=== PATIENT | male | born 1965 | race Caucasian/White ===

== ENCOUNTER 2025-06-18 22:05 | Observation (INO) | payer OTHER, SELFPAY ==
[2025-06-18 18:47] VITALS: BP 139/97
[2025-06-18 18:49] VITALS: BMI 27.3
--- NOTE | 2025-06-18 18:58 | ED.GENMED ---
History of Present Illness
General
Chief Complaint: Dizziness
Source: patient
Exam Limitations: none
Time Seen by Provider: 06/18/25 18:45
Nursing documentation reviewed up to this point in time: agreed with
History of Present Illness
History of Present Illness:
59-year-old male with history as noted presents to the ER for evaluation of dizziness and vomiting. Patient reports rather abrupt onset of his symptoms around 5 PM and have been constant since that time. He reports an intense room spinning
sensation associated with severe nausea and vomiting. Symptoms are much worse with movement, somewhat better when sitting still. He denies any abdominal pain. Denies any chest pain or palpitations. He denies headache or neck pain. He denies any
change in his vision or speech, focal weakness or numbness in his extremities. He has never had similar symptoms in the past. He does note that he has had a mild cold with some congestion and cough over the past few days.
Past History
Past History
ED Past Medical History: Other (Diverticulitis)
ED Past Surgical History: None
Social History
Tobacco: Non-smoker
Alcohol: None
Review of Systems
Review of Systems
All Other Systems: ROS reviewed and negative except as documented in HPI and ROS
Constitutional: Denies fever or chills
EENT: Reports other (Congestion); Denies sore throat
Respiratory: Reports cough; Denies trouble breathing
Cardiac: Denies chest pain or palpitations
ABD/GI: Reports nausea and vomiting; Denies abdominal pain
: Denies flank pain
Musculoskeletal: Denies neck pain or back pain
Neurological: Reports dizzy; Denies headache, weakness or numbness
Phy Exam
Physical Exam
Physical Exam:
General: Awake, alert, oriented x3; appears uncomfortable holding emesis bag and occasionally vomiting
Head: Normocephalic, atraumatic
Eyes: Conjunctiva normal, pupils equal round and reactive to light bilaterally, EOMI, fatigable but reproducible leftward nystagmus noted but no rightward nystagmus or vertical/rotary nystagmus
Throat: Airway intact, handling secretions
Neck: Trachea midline, supple without meningismus
Lungs: Clear to auscultation bilaterally, no wheezing, rales, rhonchi
Heart: Regular rate and rhythm, no murmurs, gallops, or rubs
Abd: Soft, non distended, nontender
Neuro: Cranial nerves intact, speech fluid, no limb ataxia, motor and sensory intact in all extremities
Skin: Warm and dry
Extremities: No edema in extremities, warm and well-perfused
Scores
Heart Failure Risk
Heart Failure Risk Score: Not Applicable
Heart Score for Chest Pain Patients
STEMI patient?: Not applicable
Withdrawal Assessment of Alcohol
Withdrawal Assessment Completed?: Not applicable
Course
Orders/Labs/Results
Orders:
Orders
06/18/25 18:47
Electrocardiogram (*1) Urgent
Reason for Study: Vertigo / Dizzy
EKG- Treatment ONCE
06/18/25 18:56
CMP [Comprehensive Metabolic Panel] Urgent
Complete Blood Count/With Diff Urgent
06/18/25 18:57
CT Head W/o Iv Contrast Urgent
Comment:
Reason For Exam: acute onset dizziness
diazePAM [Valium Injection] 2 mg IV NOW STA
06/18/25 18:58
0.9% Sodium Chloride 1000 ml [Nss] 1,000 ml IV BOLUS
06/18/25 19:50
Meclizine [Antivert] 25 mg PO NOW STA
06/18/25 19:57
COVID-19 Antigen Urgent
Source: Nasal Swab
Troponin I Urgent
Influenza A+B Rapid Molecular Urgent
LEE ANN Source: Nasal Swab
Specimen Description:
06/18/25 20:05
Potassium Chloride [KCl] 40 meq 0.9% Sodium Chloride 250 ml [Nss] 250 ml IV NOW
Abnormal Lab Results
06/18/25
18:56
RBC 4.65 L 10^6/uL
(4.70-6.10)
Absolute Neuts (auto) 7.5 H 10^3/uL
(1.4-6.5)
Lymphocytes % 19.1 L %
(20.5-51.1)
Potassium 3.0 L mmol/L
(3.5-5.1)
Glucose 122 H mg/dl
(70-99)
06/18/25 18:56
06/18/25 18:56
Vital Signs
Initial and Last Documented VS:
Initial Vital Signs
Pulse Resp BP Pulse Ox
74 26 139/97 98
06/18/25 18:47 06/18/25 18:47 06/18/25 18:47 06/18/25 18:47
Last Documented Vital Signs
Temp Pulse Resp BP Pulse Ox
36.6 C 71 25 139/97 98
06/18/25 18:49 06/18/25 18:49 06/18/25 18:49 06/18/25 18:47 06/18/25 19:05
MDM/Problems Addressed
Differential Diagnosis Includes:
Vertigo: Differential diagnosis includes peripheral vertigo (BPPV, labyrinthitis, eustachian tube dysfunction, etc) versus central (brain mass, brain bleed, CVA, etc)
MDM/Problems Addressed:
59-year-old male presents to the ER for evaluation of dizziness with profuse vomiting consistent with vertigo. Has had mild cold the past few days progressed to severe vertigo this evening. Overall his clinical picture is most consistent with
peripheral vertigo with nothing to suggest central cause for his vertigo. Plan to check basic labs, EKG. Check CT head in an abundance of caution. Treat symptomatically provide some IV fluids. Reassess at the above.
Patient felt a bit woozy after IV Valium, mildly short of breath but no tachypnea or hypoxia. Suspect medication reaction continue to monitor.
Patient feeling a bit better now he says dizziness has improved slightly still quite nauseated and symptoms very pronounced with movement of the head still. They have improved however with rest/sitting still. His initial labs are unremarkable. CT
head no acute abnormalities on my review although final report pending. Will try to treat with meclizine and see if we can get his symptoms under better control but he may need admission for supportive care if symptoms remain to this degree.
Patient still symptomatic difficulty moving around too to severe symptoms. Will admit for continued treatment. Discussed with hospitalist.
*Radiology
Radiology exam reviewed: radiology read reviewed
*Pulse Oximetry
SaO2: 98
Oxygen Mode of Delivery: Room air
Patient hypoxic: no (98%)
*EKG
Interpreted by ED Provider?: Yes
Heart Rate: 75
Rate: normal
Rhythm: sinus
[place]: normal axis
Interval: normal interval and normal QT interval (Borderline QT prolongation)
QRS Pattern: normal QRS
Ischemia: no ischemia
*Critical Care Note
Total Time (30-74mins, 75-104mins- exclusive of procedures): Not Applicable
Data Reviewed
Source: patient and ambulance crew
Patient Management
Discussion with other providers: Hospitalist (Discussed with hospitalist)
Escalation/DeEscalation of care consider admission/obs:
Admission indicated
ED Attending Note
-
Portions of this chart may have been created with voice recognition software.� Occasional wrong word or��sound alike� substitutions may have occurred due to the inherent limitations of voice recognition software.
Discharge Plan
Departure
Patient Disposition: Admit
Date of Disposition: 06/18/25
Time of Disposition: 20:27
Admit to doctor: Felisha
Presentation/result/management discussed w/ accepting MD/DO: Hospitalist
Discharge Problem:
Vertigo
Prescriptions:
No Action
lisinopril 10 mg Tablet
10 mg PO DAILY Qty: 30 0RF
hydrochlorothiazide 25 mg Tablet
25 mg PO DAILY Qty: 30 0RF
Interventions
Interventions:
*Risk Screen - Suicide Last Done: 06/18/25 18:45
*General Assessment Last Done: 06/18/25 18:45
*Neglect/Abuse Screening Last Done: 06/18/25 18:45
*ED- Fall Risk Assessment Last Done: 06/18/25 18:45
*ED COVID-19 Vaccine History Last Done: 06/18/25 18:45
*ED Influenza Vaccine History Last Done: 06/18/25 18:45
ED- Neurological Assessment Last Done: 06/18/25 18:50
ED- Cardiac Assessment Last Done: 06/18/25 18:50
Discharge Date and Time
Print Language: WELSH
[2025-06-18 19:00] VITALS: BP 140/99
[2025-06-18] MEDS: NSS 1000 IV (19:01)
[2025-06-18] MEDS: VALIUM INJECTION 2 MG IV (19:01)
[2025-06-18 19:04] LABS: Hematocrit 40.4 % (39.0-52.0); Hemoglobin 14.2 g/dL (13.0-18.0); Mean Corp Hgb Conc. 35.1 g/dL (33.0-37.0); Mean Corpuscular Volume 86.9 fL (80.0-94.0); Nucleated Red Blood Cells % 0 % (-); Platelet Count 244 10^3/uL (130-400); Red Cell Dist. Width 11.6 % (11.5-14.5)
[2025-06-18 19:18] LABS: ALT (SGPT) 41 U/L (0-50); AST (SGOT) 34 U/L (17-59); Albumin 4.5 g/dl (3.5-5.0); Alkaline Phosphatase 82 U/L (38-126); Blood Urea Nitrogen 19 mg/dl (9-20); Calcium 9.8 mg/dl (8.4-10.2); Carbon Dioxide 25 mmol/L (22-30); Chloride 101 mmol/L (98-107); Estimated Creatinine Clearance 83 ml/min; Glucose 122 mg/dl (70-99); Potassium 3.0 mmol/L (3.5-5.1); Sodium 136 mmol/L (135-145); Total Protein 7.3 g/dl (6.3-8.2); eGFR > 60.00
[2025-06-18 20:22] LABS: COVID-19 Antigen Negative (Negative)
[2025-06-18 20:30] LABS: Troponin I < 0.012 ng/ml
[2025-06-18 20:34] VITALS: BP 167/106
[2025-06-18] MEDS: KCL 270 MEQ IV (20:39)
--- NOTE | 2025-06-18 20:45 | W.PN.UPDATE ---
Addendum entered and electronically signed by Dina Jha MD 06/18/25 23:11:
patient with persistent nausea post Zofran, will change antiemetic to IV Compazine PRN
patient willing to try Antivert now as well.
Original Note:
Update Note
Progress Note Update
This is an update to H&P written by BUTTON INSPECTOR Narda Wheat
I saw and examined the patient.
The BUTTON INSPECTOR's note was reviewed and I agree with the note.
Comment:
Mr. Aki Agustin is a 59 yo man with hx diverticulitis presents to the ER with sudden onset of dizziness and vomiting.
Triage VS: T 36.6 C, P 74, RR 26, BP 139/97, SpO2 98%
On exam patient appears nauseated, no nystagmus, no focal deficits.
LABS: WBC 10.3, Hg 14.2, Na 136, K+ 3.0, CO2 25, Cr 1.0, Glucose [address]
IMPRESSION:
No acute intracranial abnormality noted.
Moderate nonacute sinusitis. Stable
Mild acute left maxillary sinusitis.
Vertigo
-s/p Valium in ER, patient nervous to take Meclizine with water 2/2 nausea
-IV Zofran x 1 now
-Meclizine PRN, hopefully can take once nausea treated
-IVF
-PT Vestibular therapy
-team to consider MRI in AM if symptoms are persistent
Hypokalemia
-s/p 40mEq IV repletion
-add on Mag
Essential HTN
-HISTOLOGY TECH Lisinopril, hold HCTZ
DVT PPx
FULL CODE
remainder of plan per BUTTON INSPECTOR note
--- NOTE | 2025-06-18 20:46 | HPS.HSE ---
Family Physician
-
Family Physician: Ezio Goncalves
Chief Complaint
-
dizziness and vomiting
History of Present Illness
Patient is a 59-year-old male with past medical history significant for hypertension who presented to [facility] ED for evaluation of dizziness and vomiting. Patient reports abrupt onset of room spinning dizziness and vomiting at approximately 1600 this
afternoon. Reports that he was on phone (with phone held between ear and shoulder) while folding laundry when symptoms abrutply started. Patient stated that he has had sinus drainage and cough for approximatelly 5 days. Denies fever, chills,
shortness of breath, chest pain, consitpation, diarrhea or urinary symptoms.
Medical History
Past Medical History
Past Medical History: Reports Other
Additional Past Medical History:
hypertension
diverticulosis
Past Surgical History: Reports None
Social History
Tobacco: Non-smoker
Alcohol: Occasional (2 beers 2-3x per week )
Drug: None
Personal:
Living: Alone
Family History
Family History: Not pertinent
Allergies / Home Medications
Allergies reflects when Allergies were last updated in [email or web address].
Home Medications with original date entered in [email or web address]
Allergy/Medication List:
Allergies
Allergy/AdvReac Type Severity Reaction Status Date / Time
No Known Allergies Allergy Verified 08/06/23 14:13
Home Medications
hydrochlorothiazide 25 mg tablet 25 mg PO DAILY #30 tabs 08/08/23
lisinopril 10 mg tablet 20 mg PO DAILY 06/18/25
Review of Systems
-
History Source: Patient
Constitutional: Denies Fever or Chills
EENT: Denies Sore Throat
Respiratory: Reports Cough; Denies Hemoptysis or Trouble Breathing
Cardiac: Denies Chest Pain, Diaphoresis, Palpitations or Syncope
Abdomen/GI: Reports Nausea and Vomiting; Denies Abdominal Pain or Diarrhea
: Denies Dysuria, Frequency or Urgency
Musculoskeletal: Denies Joint Pain
Skin: Denies Rash
Neurological: Reports Dizzy; Denies Headache, Weakness or Numbness
Physical Exam
Vital Signs
Vital Signs
Temp Pulse Resp BP Pulse Ox
97.8 F 71 25 139/97 98
06/18/25 18:49 06/18/25 18:49 06/18/25 18:49 06/18/25 18:47 06/18/25 19:05
Physical Exam
General: Well Developed, Well Nourished and Conversant
HEENT: NormoCephalic, Moist mucous membranes, PERRLA, Nose Appears Normal and Ears Appear Normal
Respiratory: Clear and Non Labored Respirations
Cardiac: Regular Rhythm; No Murmur, Rub, Gallop or Peripheral Edema
GI: Soft, Non Tender, Non Distended and Normal Bowel Sounds
Musculoskeletal: No Clubbing, No Cyanosis and No Edema
Skin: Warm and IV/Catheter Site
Neuro: Awake and AO x 3
Psych: Calm and Intact Judgment/Insight
Laboratory Results
-
06/18/25 18:56
06/18/25 18:56
Laboratory Results
Total Bilirubin 0.8 mg/dl (0.2-1.3) 06/18/25 18:56
AST 34 U/L (17-59) 06/18/25 18:56
ALT 41 U/L (0-50) 06/18/25 18:56
Alkaline Phosphatase 82 U/L (38-126) 06/18/25 18:56
Troponin I < 0.012 ng/ml 06/18/25 19:57
Data Reviewed
-
CT Scan: Report Reviewed by me (Head: No acute intracranial abnormality noted. Moderate nonacute sinusitis. Stable Mild acute left maxillary sinusitis.)
Medical Tests (Nuc Med, Echo, EKG etc): Report Reviewed by me (EKG: NORMAL SINUS RHYTHM CANNOT RULE OUT ANTERIOR INFARCT , AGE UNDETERMINED QTcB >= 480 msec)
Lab Data: Labs Reviewed by me (K+ 3.0 )
Impression/Plan
-
IMPRESSION/PLAN:
#vertigo
abrupt onset of room spinning dizziness and vomiting
Influenza: negative
Covid: negative
EKG: NORMAL SINUS RHYTHM
CANNOT RULE OUT ANTERIOR INFARCT , AGE UNDETERMINED
QTcB >= [address]: No acute intracranial abnormality noted.
Moderate nonacute sinusitis. Stable
Mild acute left maxillary sinusitis.
- Admit to med/surg
- consider MRI if symptoms are persistent
- PT for vestibular therapy
- PRN Zofran
- PRN Meclizine
#hypokalemia
K+ 3.0
- KCL 40meq given in ED
- monitor BMP
- replete as indicated
#hypomagnesemia
Mag 1.6
- repleted in ED
- monitor BMP
- replete as indicated
#hypertension
- hold HCTZ
- continue lisinopril
Code status: full code
DVT Prophylaxis: SCDs
[2025-06-18 21:00] VITALS: BP 174/113
[2025-06-18 21:22] LABS: Magnesium 1.6 mg/dl (1.6-2.3)
[2025-06-18] MEDS: ZOFRAN 4 MG IV (21:24)
[2025-06-18 22:00] VITALS: BP 157/102
[2025-06-18 23:02] VITALS: BP 155/105; BMI 26.0
[2025-06-18] MEDS: LR 1000 IV (23:27)
[2025-06-18] MEDS: MAGNESIUM SULFATE 102 GRAMS IV (23:28)
[2025-06-18] MEDS: ANTIVERT 25 MG PO (23:30)
[2025-06-19 07:30] VITALS: BP 144/97
[2025-06-19 08:41] LABS: Blood Urea Nitrogen 16 mg/dl (9-20); Calcium 8.8 mg/dl (8.4-10.2); Carbon Dioxide 30 mmol/L (22-30); Chloride 103 mmol/L (98-107); Estimated Creatinine Clearance 77 ml/min; Glucose 91 mg/dl (70-99); Magnesium 2.1 mg/dl (1.6-2.3); Potassium 4.5 mmol/L (3.5-5.1); Sodium 141 mmol/L (135-145); eGFR > 60.00
[2025-06-19 09:17] VITALS: BP 161/101
[2025-06-19] MEDS: FLUSH (NSS) 1 FLUSH IV (09:35)
[2025-06-19] MEDS: ANTIVERT 25 MG PO (09:37)
[2025-06-19] MEDS: ZESTRIL 20 MG PO (09:37)
[2025-06-19] MEDS: LR 1000 IV ×2 (09:43→20:41)
[2025-06-19] MEDS: AUGMENTIN 500 MG/125 MG 1 TABLET PO ×2 (10:45→20:42)
[2025-06-19 11:17] VITALS: BP 141/91; BP 157/97; BP 167/94; PULSE 75; PULSE 77; PULSE 78
--- NOTE | 2025-06-19 13:25 | W.PN.HOSP.TC ---
Today's Communication/Plan
-
Assessment / Plan
Assessment / Plan
NAD
Scleral Anicteric
MMM
Sinus: No pain or pressure over sinuses
Ears: Good light reflex without erythema/purulence
No JVD
CTABL
RRR, S1/S2
Soft, NT, ND, BS+
Warm, Dry
AAOx3
Calm
Vertigo likely secondary to acute sinusitis, no tinnitus, loss of hear, pain behind ears/eyes
Start Augmentin
Nasal saline
Start loratadine to open up eustachian tubes
Obtain orthostatics
Obtain 2D echocardiogram to rule out cardiac etiology
Obtain brain MRI to rule out posterior CVA
Vestibular rehab
HTN
Continue antihypertensive
Hypokalemia
COnitnue potassium supplementation
Anticipated Discharge: 24 - 48 hours
Subjective/Interval History
-
Date of Service: June 19, 2025
Seen and examined. No new complaints. No acute overnight events
Objective Data
-
Labs:
Laboratory Results
06/19/25
07:26
Sodium 141
Potassium 4.5 D
Chloride 103
Carbon Dioxide 30
BUN 16
Creatinine 1.1
Glucose 91
Calcium 8.8
Vital Signs:
Vital Signs
Temp Pulse Resp BP Pulse Ox
97.7 F 75 16 144/97 99
06/19/25 07:30 06/19/25 07:30 06/19/25 07:30 06/19/25 07:30 06/19/25 07:30
[2025-06-19] MEDS: CLARITIN 10 MG PO (15:11)
[2025-06-19 15:19] VITALS: BP 100/55
--- NOTE | 2025-06-19 15:42 | CM ---
Patient seen bedside, initial assessment completed. Patient is a 59-year-old male with past medical history significant for hypertension who presented to [facility] ED for evaluation of dizziness and vomiting.
Patient resides w/ spouse and their 2 daughters in a 2ST[facility], 2 steps to enter. Patient is independent w/ mobility, no device required. Independent w/ ADLs and personal care. No DME reported. No therapy/HC hx. Patient drives.
Address, point of contact and insurance verified
PCP: Ben Goncalves
Pharmacy: [facility] [place]
Patient admitted obs. OOBS form verbally reviewed, copy provided, copy on chart
Therapy evaluated patient, recommending OP vestibular therapy at d/c. Patient agreeable and will need a script at d/c
Plan: Home, OP vestibular PT
[2025-06-19] MEDS: AYR SALINE NASAL GEL 1 APPLIC NASAL (20:47)
[2025-06-19 22:58] VITALS: BP 146/86
[2025-06-20] MEDS: LR 1000 IV (06:08)
[2025-06-20 07:20] VITALS: BP 144/87; BP 146/93; BP 162/103; PULSE 78; PULSE 79; PULSE 85
[2025-06-20] MEDS: AUGMENTIN 500 MG/125 MG 1 TABLET PO (08:41)
[2025-06-20] MEDS: CLARITIN 10 MG PO (08:44)
[2025-06-20] MEDS: ZESTRIL 20 MG PO (08:44)
--- NOTE | 2025-06-20 10:47 | CM ---
patient seen at bedside
MRI today
per hospitalist dc today
OBS status-IMM n/a
script given for outpatient vestibular therapy as rec by PT
plan: home with outpatient vistibular therapy
to transport
--- NOTE | 2025-06-20 13:45 | W.DCSUMMARY ---
Discharge Summary
Discharge Data
Date of Admission: 06/18/25
Date of Discharge: 06/20/25
-
Pending Results: No
Hospital Course
59-year-old male with past medical history significant for hypertension
Presented with acute dizziness. Head CT without evidence of acute CVA however did demonstrate potential sinusitis.. Evaluated by physical therapy recommended vestibular rehab. Had a brain MRI without evidence of acute CVA. Had a 2D
echocardiogram completed without evidence of wall motion abnormalities. Symptomatology most consistent with acute sinusitis started on Augmentin for [address]
IMPRESSION:
No acute intracranial abnormality noted.
Moderate nonacute sinusitis. Stable
Mild acute left maxillary sinusitis.
Brain MRI
IMPRESSION:
No acute intracranial abnormality noted.
Sequelae of mild chronic small vessel ischemic disease. There is a small focus of blooming artifact within the right basal ganglia which is likely sequelae of prior microhemorrhage.
Moderate mucosal thickening of the paranasal sinuses. Recommend clinical correlation for possible acute sinusitis.
2d echo
SUMMARY
1. Left ventricular chamber dimensions are within normal limits and systolic function is preserved with an estimated ejection fraction of 58% by Rivera's method of discs. No regional wall motion abnormalities noted.
2. Trace aortic regurgitation.
3. Trace mitral valve regurgitation.
4. Trace tricuspid regurgitation. Estimated pulmonary artery pressure of 17 mmHg assuming a right atrial pressure of 3 mmHg.
5. No prior studies for comparison.
Seen and examined on the day of discharge which was 06/20. No new complaints. No acute overnight events.
Intermittent dizziness especially with fast head movements otherwise. Much better.
NAD
Scleral Anicteric
MMM
No JVD
CTABL
RRR, S1/S2
Soft, NT, ND, BS+
Warm, Dry
AAOx3
Calm
More than 30 minutes spent in discharge including
Final examination of the patient
Summarizing hospital stay
Instructions for continuing care to all relevant caregivers
Preparation of discharge records, prescriptions, and referral forms
Total time spent (in minutes): 33mins
Discharge Plan
-
Patient Disposition: Home (Routine Discharge)
Discharge Diagnosis/Procedures: Acute sinusitis
Condition: Good
Diet: As tolerated
Activity: As tolerated
Activity Restrictions/Additional Instructions:
Presented with acute dizziness. Head CT without evidence of acute CVA however did demonstrate potential sinusitis.. Evaluated by physical therapy recommended vestibular rehab. Had a brain MRI without evidence of acute CVA. Had a 2D
echocardiogram completed without evidence of wall motion abnormalities. Symptomatology most consistent with acute sinusitis started on Augmentin for [address]
IMPRESSION:
No acute intracranial abnormality noted.
Moderate nonacute sinusitis. Stable
Mild acute left maxillary sinusitis.
Brain MRI
IMPRESSION:
No acute intracranial abnormality noted.
Sequelae of mild chronic small vessel ischemic disease. There is a small focus of blooming artifact within the right basal ganglia which is likely sequelae of prior microhemorrhage.
Moderate mucosal thickening of the paranasal sinuses. Recommend clinical correlation for possible acute sinusitis.
2d echo
SUMMARY
1. Left ventricular chamber dimensions are within normal limits and systolic function is preserved with an estimated ejection fraction of 58% by Rivera's method of discs. No regional wall motion abnormalities noted.
2. Trace aortic regurgitation.
3. Trace mitral valve regurgitation.
4. Trace tricuspid regurgitation. Estimated pulmonary artery pressure of 17 mmHg assuming a right atrial pressure of 3 mmHg.
5. No prior studies for comparison.
Referrals:
Ezio Goncalves MD [Family Provider, [facility]]
Prescriptions:
New
meclizine 25 mg Tablet
25 mg PO Q8HPRN PRN (Reason: vertigo) Qty: 10 0RF
amoxicillin-pot clavulanate 875-125 mg Tablet
1 tab PO Q12 Qty: 14 0RF
[place] Saline Gel
1 applic intranasal Q2HPRN PRN (Reason: post nasal drip) Qty: 14.1 0RF
loratadine 10 mg Tablet
10 mg PO DAILY Qty: 14 0RF
Continued
hydrochlorothiazide 25 mg Tablet
25 mg PO DAILY Qty: 30 0RF
lisinopril 10 mg tablet
20 mg PO DAILY
Discharge Orders:
Discharge Patient (As Directed); Ordered 06/20/25
Ordered By: Chong Navarro
Discharge Date and Time
Print Language: LATVIAN
[2025-06-20 14:42] VITALS: BP 167/103
--- NOTE | 2025-06-20 14:46 | PTCARENOTE ---
BP 167/103 recheck same numbers (166/102) - hospitalist aware . Pt instructed to restart BP meds at home .
== END 2025-06-20 14:57 | disposition home or self-care (01) ==
LOC: 4 WEST ACU 22:05
PROVIDERS: Nurse Practitioner Family; ADMITTING PHYSICIAN Student in an Organized Health Care Education/Training Program; ATTENDING PHYSICIAN Hospitalist; EMERGENCY PHYSICIAN Emergency Medicine; FAMILY PHYSICIAN Family Medicine
DX: J01.00 Acute maxillary sinusitis, unspecified (principal); E87.6 Hypokalemia; I10 Essential (primary) hypertension; Z79.899 Other long term (current) drug therapy
CPT/HCPCS: 70450; 70551; 80048; 80053; 83735; 84484; 85025; 87502; 87811; 93005; 93306; 96361; 96374; 96375; 97163; 99285; G0378